=== PATIENT | female | born 1990 | race Caucasian/White ===

== ENCOUNTER 2022-11-15 07:26 | Day surgery (SDC) | payer BC, OTHER | END 2022-11-15 09:25 | disposition home health service (06) | LOC: CSHLD/OP 07:26 | PROVIDERS: ATTEND Obstetrics & Gynecology | DX: O36.8130 Decreased fetal movements, third trimester, not applicable or unspecified (principal); Z3A.28 28 weeks gestation of pregnancy; Z88.0 Allergy status to penicillin; Z88.1 Allergy status to other antibiotic agents ==

== ENCOUNTER 2022-11-24 16:51 | Day surgery (SDC) | payer BC, OTHER ==
[2022-11-24 17:30] VITALS: BMI 39.6
[2022-11-24] MEDS ORDERED: hydrALAZINE 20 MG/ML VIAL SLOW IVP PRN (17:30)
== END 2022-11-24 19:15 | disposition home or self-care (01) ==
LOC: CSHLD/OP 16:51
PROVIDERS: ATTEND Obstetrics & Gynecology
DX: O36.8130 Decreased fetal movements, third trimester, not applicable or unspecified (principal); O99.343 Other mental disorders complicating pregnancy, third trimester; F41.9 Anxiety disorder, unspecified; O99.891 Other specified diseases and conditions complicating pregnancy; R73.03 Prediabetes; Z3A.29 29 weeks gestation of pregnancy; Z79.82 Long term (current) use of aspirin; Z79.899 Other long term (current) drug therapy; Z88.2 Allergy status to sulfonamides; Z88.0 Allergy status to penicillin; Z88.1 Allergy status to other antibiotic agents
CPT/HCPCS: 76819

== ENCOUNTER 2022-12-12 13:09 | Day surgery (SDC) | payer BC, OTHER ==
[2022-12-12] MEDS ORDERED: hydrALAZINE 20 MG/ML VIAL SLOW IVP PRN (14:15)
== END 2022-12-12 15:35 | disposition home or self-care (01) ==
LOC: CSHLD/OP 13:09
PROVIDERS: ATTEND Obstetrics & Gynecology
DX: O36.8130 Decreased fetal movements, third trimester, not applicable or unspecified (principal); Z98.890 Other specified postprocedural states; Z88.2 Allergy status to sulfonamides; Z88.0 Allergy status to penicillin; Z88.8 Allergy status to other drugs, medicaments and biological substances; Z79.899 Other long term (current) drug therapy; Z3A.32 32 weeks gestation of pregnancy
CPT/HCPCS: 76819

== ENCOUNTER 2023-01-01 03:20 | Day surgery (SDC) | payer BC, OTHER ==
[2023-01-01 04:26] VITALS: BMI 38.9
== END 2023-01-01 04:43 | disposition home or self-care (01) ==
LOC: CSHLD/OP 03:20
PROVIDERS: ATTEND Obstetrics & Gynecology
DX: O36.8130 Decreased fetal movements, third trimester, not applicable or unspecified (principal); O99.343 Other mental disorders complicating pregnancy, third trimester; F41.9 Anxiety disorder, unspecified; O24.113 Pre-existing type 2 diabetes mellitus, in pregnancy, third trimester; Z79.82 Long term (current) use of aspirin; Z79.899 Other long term (current) drug therapy; Z88.1 Allergy status to other antibiotic agents; Z88.0 Allergy status to penicillin; Z88.2 Allergy status to sulfonamides; Z98.890 Other specified postprocedural states; Z3A.34 34 weeks gestation of pregnancy

== ENCOUNTER 2023-01-08 06:54 | Observation (INO) | payer BC, OTHER ==
[2023-01-08] MEDS ORDERED: hydrALAZINE 20 MG/ML VIAL SLOW IVP PRN ×2 (08:17→11:31)
[2023-01-08 09:26] LABS: ALT (SGPT) 11 U/L (8-55); AST (SGOT) 12 U/L (5-34); Albumin 3.1 g/dL (3.5-5.0); Alkaline Phosphatase 96 U/L (40-110); Anion Gap 11 mmol/L (10-20); BUN (Urea Nitrogen) 7 mg/dL (7.0-18.7); Bilirubin, Total 0.2 mg/dL (0.2-1.2); Calc. Creatinine Clearance 0 mL/min (70-130); Calcium 8.7 mg/dL (7.8-10.44); Carbon Dioxide 22 mmol/L (22-29); Chloride 107 mmol/L (98-107); Estimated GFR 120; Globulin 2.8 g/dL (2.4-3.5); Glucose 141 mg/dL (70-105); Protein, Total 5.9 g/dL (6.0-8.3); Sodium 136 mmol/L (136-145)
[2023-01-08] MEDS ORDERED: Lactated Ringer's 1,000 ML IV SCH (10:15)
[2023-01-08 11:27] LABS: Fetal Membranes Rupture No Membranes Rupture (No Rupture)
[2023-01-08] MEDS ORDERED: Acetaminophen 500 MG TAB PO PRN (11:31)
[2023-01-08] MEDS ORDERED: Ondansetron PF 4 MG/2 ML Vial IVP PRN (11:31)
[2023-01-08] MEDS ORDERED: Promethazine HCl 25 MG/ML VIAL IM PRN (11:31)
[2023-01-08] MEDS ORDERED: Dextrose 50% Abboject 50 ML SYRINGE SLOW IVP PRN (11:37)
[2023-01-08] MEDS ORDERED: Glucagon 1 MG/ML KIT IM PRN (11:37)
[2023-01-08] MEDS ORDERED: Dextrose 5% in Water 1,000 ML IV PRN (11:37)
[2023-01-08 13:35] LABS: Bilirubin Neg (Negative); Blood, Urine Negative (Negative); Clarity Clear (Clear); Glucose, Urine (Dipstick) 100 mg/dL (Negative); Ketone, Urine 5 mg/dL (Negative); Leukocyte Negative (Negative); Nitrite Negative (Negative); Protein, Urine (Dipstick) 15 mg/dl (Neg-Trace); Urobilinogen Normal mg/dL (Less than 2)
[2023-01-08 13:48] LABS: Bacteria/HPF 2+ HPF (None Seen); CAUTI Indications for Culture Pregnancy; RBC/HPF None Seen HPF (0-3); Squamous Epithelial 0-3 HPF (0-3); Urine Culture Reflex Yes Yes; WBC/HPF 0-3 HPF (0-3)
[2023-01-08] MEDS ORDERED: metFORMIN 500 MG TAB PO SCH (18:00)
[2023-01-08 18:47] VITALS: BMI 39.4
[2023-01-09] MEDS ORDERED: Aspirin 81 mg Enteric Coated Tablet PO SCH (09:00)
== END 2023-01-08 20:30 | disposition home health service (06) ==
LOC: CSHLD/OP 06:54 → CSHLD 09:11 → INTOOBSV 09:11 → CSHLD 09:30
PROVIDERS: ADMIT Obstetrics & Gynecology; ATTEND Obstetrics & Gynecology
DX: O36.8130 Decreased fetal movements, third trimester, not applicable or unspecified (principal); O24.410 Gestational diabetes mellitus in pregnancy, diet controlled; O99.343 Other mental disorders complicating pregnancy, third trimester; F41.9 Anxiety disorder, unspecified; Z88.1 Allergy status to other antibiotic agents; Z88.0 Allergy status to penicillin; Z88.2 Allergy status to sulfonamides; Z98.890 Other specified postprocedural states; Z3A.35 35 weeks gestation of pregnancy
CPT/HCPCS: 36415; 36416; 76819; 80053; 81001; 82239; 84112; 87086; G0378

== ENCOUNTER 2023-01-15 19:00 | Inpatient (IN) | payer BC, OTHER ==
[2023-01-15] MEDS ORDERED: Methylergonovine 0.2 MG/ML VIAL IM PRN (19:05)
[2023-01-15] MEDS ORDERED: Lactated Ringer's 1,000 ML IV SCH (19:05)
[2023-01-15] MEDS ORDERED: Oxytocin 30 units/NS 500 ML 500 ML IV SCH ×3 (19:05)
[2023-01-15] MEDS ORDERED: HYDROcodone/Acetaminophen 5/325 mg Tablet PO PRN ×2 (19:05)
[2023-01-15] MEDS ORDERED: Docusate 100 MG CAP PO PRN (19:05)
[2023-01-15] MEDS ORDERED: fentaNYL 50 mcg/mL 1 mL Vial SLOW IVP PRN (19:05)
[2023-01-15] MEDS ORDERED: Zolpidem Tartrate 5 MG TAB PO PRN (19:05)
[2023-01-15] MEDS ORDERED: Carboprost 250 MCG/ML AMP IM PRN (19:05)
[2023-01-15] MEDS ORDERED: Diphenoxylate HCl/Atropine Tablet PO PRN ×2 (19:05)
[2023-01-15] MEDS ORDERED: Misoprostol 200 MCG TAB PR PRN (19:05)
[2023-01-15] MEDS ORDERED: Ondansetron PF 4 MG/2 ML Vial IVP PRN (19:05)
[2023-01-15] MEDS ORDERED: Ibuprofen 800 MG TAB PO PRN (19:05)
[2023-01-15] MEDS ORDERED: Acetaminophen 500 MG TAB PO PRN (19:05)
[2023-01-15] MEDS ORDERED: Lidocaine 1% (PF) 30 ML VIAL SC PRN (19:05)
[2023-01-15] MEDS ORDERED: hydrALAZINE 20 MG/ML VIAL SLOW IVP PRN (19:05)
[2023-01-15] MEDS ORDERED: CEFAZOLIN 2 GM in Sodium Chloride 0.9% 100 ML IVPB SCH (19:05)
[2023-01-15] MEDS ORDERED: Promethazine HCl 25 MG/ML VIAL IM PRN (19:05)
[2023-01-15 19:39] VITALS: BMI 38.6
[2023-01-15 20:37] LABS: Hemoglobin 12.1 g/dL (12.0-15.5); Mean Corpuscular HGB CONC 32.7 g/dL (32.0-36.0); Mean Corpuscular Hemoglobin 27.1 pg (27.0-33.0); Mean Corpuscular Volume 82.8 fl (81.6-98.3); Mean Platelet Volume 12.3 fl (7.4-10.4); Platelet Count 195 10x3/uL (150-450); RBC Distribution Width 16.2 % (11.5-14.5); Red Blood Cell (RBC) Count 4.47 10x6/uL (3.90-5.03)
[2023-01-15] MEDS: Misoprostol 100 MCG TAB VAG SCH (20:50)
[2023-01-15 21:10] LABS: Syphilis Antibody Nonreactive (Nonreactive); Syphilis Antibody Index 0.02 S/CO (<1.00 Non-Reactive)
[2023-01-15 21:11] LABS: HBSAg Index 0.17 S/CO (0-0.99); HIV (1/2) Antibody/Antigen Non-Reactive (NonReactive); Hep B Surf Ag - L&D Non-Reactive S/CO (NonReactive)
[2023-01-16] MEDS: Misoprostol 100 MCG TAB VAG SCH ×3 (00:27→14:15)
[2023-01-16] MEDS ORDERED: CEFAZOLIN 1 GM in Sodium Chloride 0.9% 100 ML IVPB SCH (04:00)
[2023-01-16] MEDS ORDERED: CEFAZOLIN 1 GM VIAL ONE (04:01)
[2023-01-16] MEDS ORDERED: fentaNYL/Ropivacaine Epidural 100 ML ONE (05:36)
[2023-01-16] MEDS ORDERED: Promethazine HCl 25 MG/ML VIAL IM PRN (06:22)
[2023-01-16] MEDS ORDERED: Moisturizing Cream (Eucerin) 113 GM JAR TOP PRN (06:22)
[2023-01-16] MEDS ORDERED: Acetaminophen 325 MG TAB PO PRN (06:22)
[2023-01-16] MEDS ORDERED: Naloxone HCl 0.4 mg/ml Vial IVP PRN ×2 (06:22)
[2023-01-16] MEDS ORDERED: diphenhydrAMINE 50 MG/ML VIAL IVP PRN (06:22)
[2023-01-16] MEDS ORDERED: ePHEDrine Sulfate 50 MG/10 ML VIAL SLOW IVP PRN (06:22)
[2023-01-16] MEDS ORDERED: Lactated Ringer's 500 ML IV PRN (06:22)
[2023-01-16] MEDS ORDERED: Ondansetron PF 4 MG/2 ML Vial IVP PRN ×2 (06:22→11:06)
[2023-01-16] MEDS ORDERED: fentaNYL 2 mcg/Ropivacaine 0.2% Epidural 100 ML CADD EPIDURAL SCH (06:30)
[2023-01-16] MEDS ORDERED: Communication Order-Pharmacy FS SCH (06:30)
[2023-01-16] MEDS ORDERED: Preparation H Ointment 28 GM TUBE PR PRN (11:06)
[2023-01-16] MEDS ORDERED: Misoprostol 200 MCG TAB VAG PRN (11:06)
[2023-01-16] MEDS ORDERED: HYDROcodone/Acetaminophen 5/325 mg Tablet PO PRN (11:06)
[2023-01-16] MEDS ORDERED: Bisacodyl 10 MG SUPP PR PRN (11:06)
[2023-01-16] MEDS ORDERED: hydrALAZINE 20 MG/ML VIAL SLOW IVP PRN (11:06)
[2023-01-16] MEDS ORDERED: Boostrix 0.5 ML (Tdap) VIAL (>/=7 yrs of age) IM ONE (11:06)
[2023-01-16] MEDS ORDERED: Lanolin Ointment 7 GM TUBE TOP PRN (11:06)
[2023-01-16] MEDS ORDERED: Milk Of Magnesia 30 ML UDCUP PO PRN (11:06)
[2023-01-16] MEDS ORDERED: Benzocaine-Menthol 82.5 ML CAN TOP PRN (11:06)
[2023-01-16] MEDS ORDERED: diphenhydrAMINE 25 MG CAP PO PRN (11:06)
[2023-01-16] MEDS ORDERED: Oxytocin 30 units/NS 500 ML 500 ML IV SCH (11:15)
[2023-01-16] MEDS: Ibuprofen 800 MG TAB PO SCH ×2 (14:14→21:02)
[2023-01-16] MEDS: Ferrous Sulfate 325 MG TAB PO SCH (14:14)
[2023-01-16] MEDS ORDERED: Bupivacaine 0.25% HCL 30 ML VIAL ONE (19:56)
[2023-01-16] MEDS: Docusate 100 MG CAP PO SCH (21:02)
[2023-01-16] MEDS: HYDROcodone/Acetaminophen 5/325 mg Tablet PO PRN (21:43)
[2023-01-17] MEDS: Ibuprofen 800 MG TAB PO SCH (06:49)
[2023-01-17 08:01] LABS: Hematocrit 39.6 % (34.9-44.5); Hemoglobin 12.9 g/dL (12.0-15.5); Mean Corpuscular HGB CONC 32.6 g/dL (32.0-36.0); Mean Corpuscular Hemoglobin 26.9 pg (27.0-33.0); Mean Corpuscular Volume 82.5 fl (81.6-98.3); Mean Platelet Volume 11.5 fl (7.4-10.4); Platelet Count 211 10x3/uL (150-450); RBC Distribution Width 15.9 % (11.5-14.5); White Blood Cell (WBC) Count 13.2 10x3/uL (3.5-10.5)
[2023-01-17] MEDS: Docusate 100 MG CAP PO SCH (08:09)
[2023-01-17] MEDS: Ferrous Sulfate 325 MG TAB PO SCH (08:10)
[2023-01-17 10:18] VITALS: BP 133/85; TEMP 98
[2023-01-17] MEDS: HYDROcodone/Acetaminophen 5/325 mg Tablet PO PRN (12:30)
== END 2023-01-17 14:00 | disposition home or self-care (01) | DRG 807 ==
LOC: CSHLD 19:00 → CSHPP 01-16 13:27
PROVIDERS: ADMIT Obstetrics & Gynecology; ATTEND Obstetrics & Gynecology
PROC: 10E0XZZ Delivery of Products of Conception, External Approach (ICD-10-PCS; principal; 2023-01-16)
PROC: 3E0P7VZ Introduction of Hormone into Female Reproductive, Via Natural or Artificial Opening (ICD-10-PCS; 2023-01-16)
PROC: 3E0P7VZ Introduction of Hormone into Female Reproductive, Via Natural or Artificial Opening (ICD-10-PCS; 2023-01-16)
PROC: 0HQ9XZZ Repair Perineum Skin, External Approach (ICD-10-PCS; 2023-01-16)
PROC: 3E033XZ Introduction of Vasopressor into Peripheral Vein, Percutaneous Approach (ICD-10-PCS; 2023-01-16)
DX: O41.03X0 Oligohydramnios, third trimester, not applicable or unspecified (principal); Z37.0 Single live birth; O24.429 Gestational diabetes mellitus in childbirth, unspecified control; Z3A.36 36 weeks gestation of pregnancy; O99.824 Streptococcus B carrier state complicating childbirth; O70.0 First degree perineal laceration during delivery
CPT/HCPCS: 36415; 51702; 85027; 86780; 86850; 86900; 86901; 87340; 87389; 88307; J2590; J3010; J3490; S0020

== ENCOUNTER 2023-12-29 08:08 | Emergency (ER) | payer BC, SELFPAY ==
[2023-12-29] MEDS ORDERED: Dexamethasone 10 MG/ML VIAL ONE (08:32)
== END 2023-12-29 08:56 | disposition home or self-care (01) ==
LOC: CSHERS 08:08
DX: H60.93 Unspecified otitis externa, bilateral (principal); J02.9 Acute pharyngitis, unspecified; I10 Essential (primary) hypertension
CPT/HCPCS: 99282; J1100